=== PATIENT | female | born 1975 | race Caucasian/White ===

== ENCOUNTER 2018-08-28 09:54 | Emergency (ER) | payer MEDICAID ==
[~2018-08-28] VITALS: Ht 157.5 cm; Wt 65.9 kg
[2018-08-28] MEDS ORDERED: CLIN300C17 PO (10:29)
[2018-08-28] MEDS ORDERED: HYDR-4353 PO (10:29)
[2018-08-28 10:37] VITALS: BP 139/92
== END 2018-08-28 10:38 | disposition home or self-care (01) ==
LOC: ER 09:55
DX: S02.5XXA Fracture of tooth (traumatic), initial encounter for closed fracture (principal); K02.9 Dental caries, unspecified; G43.909 Migraine, unspecified, not intractable, without status migrainosus; F12.90 Cannabis use, unspecified, uncomplicated; F15.90 Other stimulant use, unspecified, uncomplicated; F17.200 Nicotine dependence, unspecified, uncomplicated; Z88.0 Allergy status to penicillin; Z88.6 Allergy status to analgesic agent; X58.XXXA Exposure to other specified factors, initial encounter; Y93.89 Activity, other specified; Y92.89 Other specified places as the place of occurrence of the external cause; Y99.8 Other external cause status
CPT/HCPCS: 99283

== ENCOUNTER 2018-10-07 23:55 | Emergency (ER) | payer MEDICAID ==
[~2018-10-07] VITALS: Ht 157.5 cm; Wt 60.5 kg
[~2018-10-07 23:55] MED LIST: CLIN300C17 PO
[2018-10-08 02:58] LABS: BASOPHILS # (AUTO) 0.1 X10'3 (0-0.2); BASOPHILS % (AUTO) 0.6 % (0-1); EOSINOPHILS # (AUTO) 0.2 X10'3 (0-0.9); EOSINOPHILS % (AUTO) 1.7 % (0-6); HEMATOCRIT 37.7 % (35.0-45.0); HEMOGLOBIN 12.5 g/dl (12.0-16.0); LYMPHOCYTES # (AUTO) 1.9 X10'3 (1.1-4.8); LYMPHOCYTES % (AUTO) 20.8 % (21-51); MEAN CORPUSCULAR HEMOGLOBIN 29.6 PG (27.0-31.0); MEAN CORPUSCULAR HGB CONC 33.1 % (33.0-36.5); MEAN CORPUSCULAR VOLUME 89.3 FL (78-98); MEAN PLATELET VOLUME 9.9 FL (7.4-10.4); MONOCYTES # (AUTO) 0.6 X10'3 (0-0.9); MONOCYTES % (AUTO) 6.6 % (2-12); NEUTROPHILS # (AUTO) 6.1 X10'3 (1.8-7.7); NEUTROPHILS % (AUTO) 70.3 % (42-75); PLATELET COUNT 256 X10'3 (140-440); RED BLOOD COUNT 4.22 X10'6 (4.20-5.60); RED CELL DISTRIBUTION WIDTH 14.4 % (11.5-14.5); WHITE BLOOD COUNT 8.9 X10'3 (4.5-11.0)
[2018-10-08 03:02] LABS: ALANINE AMINOTRANSFERASE 22 U/L (12-78); ALBUMIN 3.8 G/DL (3.4-5.0); ALBUMIN/GLOBULIN RATIO 1.1 (1.1-1.5); ALKALINE PHOSPHATASE 80 IU/L (46-116); ANION GAP 9 (8-16); ASPARTATE AMINO TRANSFERASE 17 U/L (10-37); BILIRUBIN,TOTAL 0.3 MG/DL (0.1-1.0); BLOOD UREA NITROGEN 9 MG/DL (7-18); BUN/CREATININE RATIO 14.1 (6.6-38.0); CALCIUM 8.5 MG/DL (8.5-10.1); CHLORIDE 103 MMOL/L (99-107); CREATININE 0.64 MG/DL (0.40-0.90); GLUCOSE 98 MG/DL (70-104); POTASSIUM 3.7 MMOL/L (3.5-5.1); SODIUM 139 MMOL/L (135-145); TOTAL CARBON DIOXIDE 26.9 MMOL/L (24-32); TOTAL PROTEIN 7.3 G/DL (6.4-8.2); eGFR > 90 ML/MIN
--- NOTE | 2018-10-08 03:18 | NUR ---
PT WENT TO THE BATHROOM BEFORE BEING PLACED IN ROOM, HCG SERUM ORDERED PER PROTOCOL DUE TO PATIENTS CONDITION AND NEED FOR HCG RESULTS OCTAVIO.
[2018-10-08 03:22] LABS: INR 0.9 INR; PROTHROMBIN TIME 9.5 SECONDS (9.0-12.0)
[2018-10-08] MEDS ORDERED: morphine 4 MG/ML inj SYRINge IV ONE (04:15)
[2018-10-08] MEDS ORDERED: ondansetron/PF 4mg/2ml inj IV ONE (04:15)
[2018-10-08] MEDS ORDERED: normal saline 1000ML IV soln IVB ONE (04:15)
[2018-10-08 04:22] LABS: CLARITY,URINE CLEAR (Clear); COLOR,URINE YELLOW (Yellow); GLUCOSE, URINE NEGATIVE (Neg); KETONES,URINE NEGATIVE (Neg); LEUKOCYTE ESTERASE ,URINE NEGATIVE (Neg); NITRITES, URINE NEGATIVE (Neg); OCCULT BLOOD,URINE NEGATIVE (Neg); PROTEIN,URINE NEGATIVE (Neg); UROBILINOGEN,URINE 0.2 E.U/dL (0.2-1.0)
[2018-10-08 04:30] LABS: URINE HCG NEGATIVE (NEG)
[2018-10-08 04:57] LABS: UA COLLECTION TYPE VOIDED
[2018-10-08] MEDS ORDERED: morphine 4 MG/ML inj SYRINge IV PRN (05:20)
[2018-10-08] MEDS ORDERED: HYDR-3965 PO (06:31)
[2018-10-08] MEDS ORDERED: DOXY100C43 PO (06:31)
[2018-10-08] MEDS ORDERED: CefTRIAXone 250MG inj IM ONE (06:35)
[2018-10-08] MEDS ORDERED: CefTRIAXone 250MG IM Kit w/LIDOcaine IM ONE (06:40)
[2018-10-08 08:38] VITALS: BP 119/71
== END 2018-10-08 09:06 | disposition home or self-care (01) ==
LOC: ER 23:55
DX: N73.0 Acute parametritis and pelvic cellulitis (principal); D25.9 Leiomyoma of uterus, unspecified; G43.909 Migraine, unspecified, not intractable, without status migrainosus; F17.200 Nicotine dependence, unspecified, uncomplicated; F12.90 Cannabis use, unspecified, uncomplicated; F15.90 Other stimulant use, unspecified, uncomplicated; Z88.0 Allergy status to penicillin; Z88.6 Allergy status to analgesic agent; Z88.5 Allergy status to narcotic agent
CPT/HCPCS: 36415; 76830; 76856; 80053; 81003; 81025; 85025; 85610; 87210; 87491; 87591; 93005; 96361; 96372; 96374; 96375; 96376; 99284; J0696; J2270; J2405; J7030

== ENCOUNTER 2018-10-21 14:55 | Emergency (ER) | payer MEDICAID ==
[~2018-10-21] VITALS: Ht 157.5 cm; Wt 58.8 kg
[~2018-10-21 14:55] MED LIST changes: +DOXY100C43 PO; +HYDR-3965 PO
[2018-10-21 15:30] VITALS: BP 143/89
[2018-10-21] MEDS ORDERED: HYDROcodone/acetaminophen 10/325mg tab PO ONE (16:15)
[2018-10-21] MEDS ORDERED: HYDR-4353 PO (16:32)
== END 2018-10-21 17:01 | disposition home or self-care (01) ==
LOC: ER 14:56
DX: D25.9 Leiomyoma of uterus, unspecified (principal); N93.9 Abnormal uterine and vaginal bleeding, unspecified; G43.909 Migraine, unspecified, not intractable, without status migrainosus; F12.90 Cannabis use, unspecified, uncomplicated; F15.90 Other stimulant use, unspecified, uncomplicated; Z88.0 Allergy status to penicillin; Z88.6 Allergy status to analgesic agent; Z88.5 Allergy status to narcotic agent; Z79.899 Other long term (current) drug therapy
CPT/HCPCS: 99283

== ENCOUNTER 2018-12-27 13:56 | Emergency (ER) | payer MEDICAID ==
[~2018-12-27] VITALS: Ht 157.5 cm; Wt 65.9 kg
[~2018-12-27 13:56] MED LIST changes: +CLIN-96 PO; -DOXY100C43 PO
[2018-12-27 14:12] VITALS: BP 135/88
[2018-12-27] MEDS ORDERED: TRAM50TA2 PO (14:17)
[2018-12-27] MEDS ORDERED: traMADol 50MG tablet PO ONE (14:20)
== END 2018-12-27 14:28 | disposition home or self-care (01) ==
LOC: ER 13:56
DX: M26.622 Arthralgia of left temporomandibular joint (principal); G43.909 Migraine, unspecified, not intractable, without status migrainosus; F17.200 Nicotine dependence, unspecified, uncomplicated; F12.90 Cannabis use, unspecified, uncomplicated; F15.90 Other stimulant use, unspecified, uncomplicated; Z88.0 Allergy status to penicillin; Z88.6 Allergy status to analgesic agent; Z88.5 Allergy status to narcotic agent; Z79.899 Other long term (current) drug therapy
CPT/HCPCS: 99283

== ENCOUNTER 2019-03-06 12:15 | Emergency (ER) | payer MEDICAID ==
[~2019-03-06] VITALS: Ht 157.5 cm; Wt 61.4 kg
[~2019-03-06 12:15] MED LIST changes: -HYDR-3965 PO
[2019-03-06 12:17] VITALS: BP 119/89
[2019-03-06] MEDS ORDERED: proCHLORperazine 10 MG/2 ml inj IM ONE (13:20)
[2019-03-06] MEDS ORDERED: ketorolac tromethamine 15mg/ml inj. IM ONE (13:20)
[2019-03-06] MEDS ORDERED: diphenhydrAMINE 50 mg/ml inj IM ONE (13:20)
[2019-03-06] MEDS ORDERED: RIZA10TA27 PO (14:48)
[2019-03-06] MEDS ORDERED: ONDA8TAB6 PO (14:48)
== END 2019-03-06 14:57 | disposition home or self-care (01) ==
LOC: ER 12:16
DX: G43.909 Migraine, unspecified, not intractable, without status migrainosus (principal); M54.81 Occipital neuralgia; F12.90 Cannabis use, unspecified, uncomplicated; F15.90 Other stimulant use, unspecified, uncomplicated; Z88.0 Allergy status to penicillin; Z88.5 Allergy status to narcotic agent; Z88.6 Allergy status to analgesic agent; Z79.2 Long term (current) use of antibiotics; Z79.899 Other long term (current) drug therapy
CPT/HCPCS: 70450; 96372; 99284; J0780; J1200; J1885

== ENCOUNTER 2021-07-06 09:40 | Inpatient (IN) | payer MEDICAID ==
[~2021-07-06] VITALS: Ht 167.6 cm; Wt 81.8 kg
[~2021-07-06 09:40] MED LIST changes: -CLIN-96 PO; +CLIN-97 PO; +ONDA8TAB6 PO; +RIZA10TA27 PO
[2021-07-06] MEDS ORDERED: MIDAZolam 1 MG/ML 5ML VIAL IV ONE (09:45)
[2021-07-06] MEDS ORDERED: midazolam 1 mg/ML 2ml injection ONE (09:45)
[2021-07-06] MEDS ORDERED: normal saline 1000ml 1,000 ML IV ONE ×3 (10:10→12:00)
[2021-07-06 10:29] LABS: BASOPHILS # (AUTO) 0.1 X10'3 (0-0.2); BASOPHILS % (AUTO) 0.5 % (0-1); EOSINOPHILS % (AUTO) 0.1 % (0-6); HEMATOCRIT 44.1 % (35.0-45.0); HEMOGLOBIN 14.3 g/dl (12.0-16.0); MEAN CORPUSCULAR HEMOGLOBIN 30.8 PG (27.0-31.0); MEAN CORPUSCULAR HGB CONC 32.5 g/dL (33.0-36.5); MEAN CORPUSCULAR VOLUME 94.6 FL (78-98); MEAN PLATELET VOLUME 9.2 FL (7.4-10.4); NEUTROPHILS # (AUTO) 21.8 X10'3 (1.8-7.7); NEUTROPHILS % (AUTO) 87.4 % (42-75); PLATELET COUNT 289 X10'3 (140-440); RED BLOOD COUNT 4.66 X10'6 (4.20-5.60); RED CELL DISTRIBUTION WIDTH 13.5 % (11.5-14.5); WHITE BLOOD COUNT 24.9 X10'3 (4.5-11.0)
[2021-07-06 11:08] LABS: ALANINE AMINOTRANSFERASE 28 U/L (12-78); ALBUMIN 3.1 G/DL (3.4-5.0); ALBUMIN/GLOBULIN RATIO 0.8 (1.1-1.5); ALKALINE PHOSPHATASE 113 IU/L (46-116); ANION GAP 9 (8-16); ASPARTATE AMINO TRANSFERASE 25 U/L (10-37); BILIRUBIN,TOTAL 0.2 MG/DL (0.1-1.0); BLOOD UREA NITROGEN 16 MG/DL (7-18); BUN/CREATININE RATIO 15.7 (6.6-38.0); CALCIUM 8.2 MG/DL (8.5-10.1); CHLORIDE 107 MMOL/L (99-107); CREATININE 1.02 MG/DL (0.40-0.90); GLUCOSE 112 MG/DL (70-104); POTASSIUM 3.5 MMOL/L (3.5-5.1); SODIUM 142 MMOL/L (135-145); TOTAL CARBON DIOXIDE 25.9 MMOL/L (24-32); TOTAL PROTEIN 6.8 G/DL (6.4-8.2); eGFR 59 ML/MIN
[2021-07-06 11:22] LABS: CLARITY,URINE SLIGHTLY CLOUDY (Clear); COLOR,URINE YELLOW (Yellow); GLUCOSE, URINE 500 mg/dl (Neg); KETONES,URINE NEGATIVE (Neg); OCCULT BLOOD,URINE MODERATE (Neg); PROTEIN,URINE NEGATIVE (Neg); UA COLLECTION TYPE STRAIGHT CATH
[2021-07-06 11:23] LABS: LEUKOCYTE ESTERASE ,URINE NEGATIVE (Neg); NITRITES, URINE NEGATIVE (Neg); UROBILINOGEN,URINE 0.2 E.U/dL (0.2-1.0)
[2021-07-06 11:25] LABS: ACETAMINOPHEN < 2.0 UG/ML (10-30); ETHANOL < 0.010 GM/DL (0.0-0.010)
[2021-07-06 11:25] LABS: URINE AMPHETAMINE SCREEN POSITIVE (Neg); URINE BARBITUATE SCREEN NEGATIVE (Neg); URINE BENZODIAZEPINES SCREEN POSITIVE (Neg); URINE CANNABINOID SCREEN POSITIVE (Neg); URINE COCAINE SCREEN NEGATIVE (Neg); URINE METHADONE SCREEN NEGATIVE (Neg); URINE OPIATE SCREEN NEGATIVE (Neg); URINE PHENCYCLIDINE SCREEN NEGATIVE (Neg)
[2021-07-06] MEDS ORDERED: CefTRIAXone/D5W-Rocephin 1gm 50 ML IV ONE (11:40)
[2021-07-06] MEDS ORDERED: metroNIDAZOLE-Flagyl 500mg/NS 100 ML IV STA (11:40)
[2021-07-06 11:49] LABS: HYALINE CASTS >30 /LPF (NEGATIVE); MUCUS STRANDS MANY /LPF (Neg); SQUAMOUS EPITHELIAL CELL,UR MODERATE /LPF (FEW)
[2021-07-06 11:51] LABS: BACTERIA,URINE FEW /HPF (Neg); RBC,URINE 0-2 /HPF (0-2); WBC,URINE 0-4 /HPF (0-4)
--- NOTE | 2021-07-06 12:37 | NUR ---
PT STATES SHE DOES NOT WANT MOTHER ADY TO KNOW INFORMATION ABOUT PT.
[2021-07-06] MEDS ORDERED: NO HOME MEDS PO (12:55)
[2021-07-06] MEDS ORDERED: mag hydrox/Alum hydrox/simeth 30ml oral suspension PO PRN (15:05)
[2021-07-06] MEDS ORDERED: acetaminophen 325mg tablet PO PRN (15:05)
[2021-07-06] MEDS ORDERED: ondansetron/PF 4mg/2ml inj IV PRN (15:05)
[2021-07-06] MEDS ORDERED: magnesium hydroxide 30ml (MOM) UD suspension PO PRN (15:05)
[2021-07-06] MEDS: clindamycin 600mg/D5W 50ml 50 ML IV SCH ×2 (16:00→22:56)
[2021-07-06] MEDS: normal saline 1000ml 1,000 ML IV SCH (16:00)
--- NOTE | 2021-07-06 16:06 | NUR ---
PT FOUND WITH O2 OFF SPO2 80%. PT DEMANDS WATER. STATES SHES SUPER DRY. EDUCATED ABOUT NPO ORDER. PLACED ON 6l N/C AND SPO2 TO 92%
--- NOTE | 2021-07-06 18:52 | NUR ---
Pt. wants information shared with her daughter Esther
[2021-07-06] MEDS: docusate sod 100mg capsule PO SCH (20:00)
--- NOTE | 2021-07-06 22:07 | NUR ---
Patient in ED. I have received report from RUSSELL Riojas and had the opportunity to ask questions.
[2021-07-06 22:35] VITALS: BP 137/86
--- NOTE | 2021-07-06 22:35 | NUR ---
Pt arrived in the unit; sitter @ bedside; confused, but in no acute distress; sleeps off and on; c/o dry mouth - oral care provided; aspiration precaution in placed; placed on tele monitor.
[2021-07-07] VITALS (7 sets, daily range): BP systolic 134–168; BP diastolic 80–99
[2021-07-07] MEDS: normal saline 1000ml 1,000 ML IV SCH ×3 (02:08→20:14)
[2021-07-07] MEDS: clindamycin 600mg/D5W 50ml 50 ML IV SCH ×4 (02:09→20:14)
[2021-07-07] MEDS: albuterol 2.5 MG/3 ML nebule NEB SCH ×6 (04:00→23:27)
[2021-07-07 06:24] LABS: ALBUMIN 2.4 G/DL (3.4-5.0); ANION GAP 11 (8-16); BASOPHILS % (AUTO) 0.2 % (0-1); BLOOD UREA NITROGEN 12 MG/DL (7-18); BUN/CREATININE RATIO 17.9 (6.6-38.0); CALCIUM 7.7 MG/DL (8.5-10.1); CHLORIDE 106 MMOL/L (99-107); CREATININE 0.67 MG/DL (0.40-0.90); EOSINOPHILS % (AUTO) 0.1 % (0-6); GLUCOSE 91 MG/DL (70-104); HEMATOCRIT 38.1 % (35.0-45.0); HEMOGLOBIN 12.9 g/dl (12.0-16.0); LYMPHOCYTES # (AUTO) 0.9 X10'3 (1.1-4.8); LYMPHOCYTES % (AUTO) 4.9 % (21-51); MEAN CORPUSCULAR HGB CONC 33.9 g/dL (33.0-36.5); MEAN CORPUSCULAR VOLUME 91.5 FL (78-98); MEAN PLATELET VOLUME 9.7 FL (7.4-10.4); MONOCYTES # (AUTO) 1.1 X10'3 (0-0.9); MONOCYTES % (AUTO) 5.4 % (2-12); NEUTROPHILS # (AUTO) 17.4 X10'3 (1.8-7.7); NEUTROPHILS % (AUTO) 89.4 % (42-75); PLATELET COUNT 212 X10'3 (140-440); POTASSIUM 3.7 MMOL/L (3.5-5.1); RED BLOOD COUNT 4.17 X10'6 (4.20-5.60); RED CELL DISTRIBUTION WIDTH 13.2 % (11.5-14.5); SODIUM 142 MMOL/L (135-145); TOTAL CARBON DIOXIDE 25.4 MMOL/L (24-32); WHITE BLOOD COUNT 19.5 X10'3 (4.5-11.0); eGFR > 90 ML/MIN
--- NOTE | 2021-07-07 06:31 | NUR ---
Problems reprioritized. Patient report given, questions answered & plan of care reviewed with RUSSELL Tello.
[2021-07-07] MEDS: docusate sod 100mg capsule PO SCH ×2 (08:46→20:14)
[2021-07-07] MEDS: enoxaparin 40mg/0.4ml syringe SUBCUT SCH (08:47)
--- NOTE | 2021-07-07 09:34 | NUR ---
Orders for Bedside swallow study put in per Dr. Solis.
[2021-07-08] MEDS: normal saline 1000ml 1,000 ML IV SCH ×3 (01:00→12:27)
[2021-07-08] MEDS: clindamycin 600mg/D5W 50ml 50 ML IV SCH ×4 (01:48→20:18)
[2021-07-08 02:00] VITALS: BP 151/95
[2021-07-08] MEDS: albuterol 2.5 MG/3 ML nebule NEB SCH ×6 (03:30→23:32)
[2021-07-08 06:00] VITALS: BP 168/95
[2021-07-08 06:22] LABS: BASOPHILS % (AUTO) 0.3 % (0-1); EOSINOPHILS % (AUTO) 0.3 % (0-6); HEMATOCRIT 34.9 % (35.0-45.0); HEMOGLOBIN 12.2 g/dl (12.0-16.0); LYMPHOCYTES # (AUTO) 0.7 X10'3 (1.1-4.8); LYMPHOCYTES % (AUTO) 5.6 % (21-51); MEAN CORPUSCULAR HGB CONC 34.8 g/dL (33.0-36.5); MEAN CORPUSCULAR VOLUME 89.2 FL (78-98); MEAN PLATELET VOLUME 9.4 FL (7.4-10.4); MONOCYTES # (AUTO) 0.9 X10'3 (0-0.9); MONOCYTES % (AUTO) 7.3 % (2-12); NEUTROPHILS # (AUTO) 10.6 X10'3 (1.8-7.7); NEUTROPHILS % (AUTO) 86.5 % (42-75); PLATELET COUNT 176 X10'3 (140-440); RED BLOOD COUNT 3.91 X10'6 (4.20-5.60); RED CELL DISTRIBUTION WIDTH 13.1 % (11.5-14.5); WHITE BLOOD COUNT 12.3 X10'3 (4.5-11.0)
[2021-07-08 06:25] LABS: ALBUMIN 2.2 G/DL (3.4-5.0); ANION GAP 9 (8-16); BLOOD UREA NITROGEN 6 MG/DL (7-18); BUN/CREATININE RATIO 10.2 (6.6-38.0); CALCIUM 7.8 MG/DL (8.5-10.1); CHLORIDE 101 MMOL/L (99-107); CREATININE 0.59 MG/DL (0.40-0.90); GLUCOSE 102 MG/DL (70-104); POTASSIUM 3.1 MMOL/L (3.5-5.1); SODIUM 138 MMOL/L (135-145); TOTAL CARBON DIOXIDE 28.5 MMOL/L (24-32); eGFR > 90 ML/MIN
--- NOTE | 2021-07-08 06:41 | NUR ---
Problems reprioritized. Patient report given, questions answered & plan of care reviewed with RUSSELL Iyer.
[2021-07-08] MEDS: docusate sod 100mg capsule PO SCH ×2 (07:38→20:18)
[2021-07-08] MEDS: enoxaparin 40mg/0.4ml syringe SUBCUT SCH (07:39)
--- NOTE | 2021-07-08 10:57 | NUR ---
PAGER ID: [phone] MESSAGE: [id number] Messi Del Toro- Potassium 3.1. Want potassium protocol? Shireen [phone]
[2021-07-08 11:00] VITALS: BP 144/100
[2021-07-08] MEDS ORDERED: potassium Cl 40MEQ/1/2NS 520ml 520 ML IV PRN (12:15)
[2021-07-08] MEDS ORDERED: magnesium Cl slow-release 64mg tablet PO PRN (12:15)
[2021-07-08] MEDS ORDERED: magnesium 4gm in 100ml NS 100 ML IV PRN (12:15)
[2021-07-08] MEDS ORDERED: potassium Cl 20 mEq SR tablet PO PRN (12:15)
[2021-07-08] MEDS: potassium Cl 20 mEq SR tablet PO PRN ×3 (12:28→20:18)
[2021-07-08 12:44] LABS: MAGNESIUM 1.9 MG/DL (1.5-2.4)
[2021-07-08] MEDS: metoprolol succinate 25mg (24-HOUR) SR. Tablet PO SCH (13:28)
[2021-07-08 15:00] VITALS: BP 151/88
[2021-07-08 18:00] VITALS: BP 162/99
--- NOTE | 2021-07-08 18:42 | NUR ---
Problems reprioritized. Patient report given, questions answered & plan of care reviewed with Ada WELLS.
[2021-07-08] MEDS: K and/or MAG REPLACEMENT MC SCH (20:00)
[2021-07-08] MEDS: lactobacillus rhamnosus 10,000 MMU CELLS/CAPSULE PO SCH (20:18)
[2021-07-08 22:00] VITALS: BP 140/86
[2021-07-09 02:00] VITALS: BP 165/100
[2021-07-09] MEDS: clindamycin 600mg/D5W 50ml 50 ML IV SCH ×2 (02:15→07:26)
[2021-07-09] MEDS: albuterol 2.5 MG/3 ML nebule NEB SCH ×2 (03:55→07:00)
[2021-07-09 06:00] VITALS: BP 169/108
[2021-07-09 07:24] VITALS: BP 153/90
[2021-07-09 07:25] LABS: BASOPHILS % (AUTO) 0.4 % (0-1); EOSINOPHILS # (AUTO) 0.1 X10'3 (0-0.9); EOSINOPHILS % (AUTO) 0.7 % (0-6); HEMATOCRIT 35.8 % (35.0-45.0); HEMOGLOBIN 12.3 g/dl (12.0-16.0); LYMPHOCYTES # (AUTO) 0.9 X10'3 (1.1-4.8); LYMPHOCYTES % (AUTO) 7.7 % (21-51); MEAN CORPUSCULAR HEMOGLOBIN 31.3 PG (27.0-31.0); MEAN CORPUSCULAR HGB CONC 34.4 g/dL (33.0-36.5); MEAN PLATELET VOLUME 9.4 FL (7.4-10.4); MONOCYTES % (AUTO) 9.1 % (2-12); NEUTROPHILS # (AUTO) 9.2 X10'3 (1.8-7.7); NEUTROPHILS % (AUTO) 82.1 % (42-75); PLATELET COUNT 193 X10'3 (140-440); RED BLOOD COUNT 3.93 X10'6 (4.20-5.60); WHITE BLOOD COUNT 11.2 X10'3 (4.5-11.0)
[2021-07-09] MEDS: lactobacillus rhamnosus 10,000 MMU CELLS/CAPSULE PO SCH (07:25)
[2021-07-09] MEDS: enoxaparin 40mg/0.4ml syringe SUBCUT SCH (07:26)
[2021-07-09] MEDS: docusate sod 100mg capsule PO SCH (07:26)
[2021-07-09] MEDS: metoprolol succinate 25mg (24-HOUR) SR. Tablet PO SCH (07:26)
[2021-07-09 07:40] LABS: ALBUMIN 2.2 G/DL (3.4-5.0); ANION GAP 12 (8-16); BLOOD UREA NITROGEN 6 MG/DL (7-18); BUN/CREATININE RATIO 12.8 (6.6-38.0); CHLORIDE 103 MMOL/L (99-107); CREATININE 0.47 MG/DL (0.40-0.90); GLUCOSE 98 MG/DL (70-104); POTASSIUM 3.7 MMOL/L (3.5-5.1); SODIUM 139 MMOL/L (135-145); TOTAL CARBON DIOXIDE 24.1 MMOL/L (24-32); eGFR > 90 ML/MIN
[2021-07-09] MEDS: K and/or MAG REPLACEMENT MC SCH (08:00)
[2021-07-09] MEDS ORDERED: CLIN-91 PO (10:14)
[2021-07-09] MEDS ORDERED: NICO-687 TOP (10:14)
[2021-07-09] MEDS ORDERED: METO-395 PO (10:14)
--- NOTE | 2021-07-09 10:45 | NUR ---
Patient stable for discharge. PIV removed with catheter intact. Tele removed. Discharge instructions given and patient verbalized understanding. Patient transferred off unit to family friend's vehicle via wheelchair.
== END 2021-07-09 11:14 | disposition home or self-care (01) | DRG 817 ==
LOC: ER 09:40 → ED HOLD 15:05 → PCU 3S 22:35
PROVIDERS: ADMIT Family Medicine; ATTEND Family Medicine
DX: T40.2X2A Poisoning by other opioids, intentional self-harm, initial encounter (principal); J96.01 Acute respiratory failure with hypoxia; J69.0 Pneumonitis due to inhalation of food and vomit; E87.2 Acidosis; F12.90 Cannabis use, unspecified, uncomplicated; F17.210 Nicotine dependence, cigarettes, uncomplicated; Z20.822 Contact with and (suspected) exposure to COVID-19; F15.10 Other stimulant abuse, uncomplicated; E87.6 Hypokalemia; F41.9 Anxiety disorder, unspecified; G43.909 Migraine, unspecified, not intractable, without status migrainosus; G89.29 Other chronic pain; R00.0 Tachycardia, unspecified; R03.0 Elevated blood-pressure reading, without diagnosis of hypertension; Z88.0 Allergy status to penicillin; Z88.5 Allergy status to narcotic agent; Y92.89 Other specified places as the place of occurrence of the external cause; Z71.51 Drug abuse counseling and surveillance of drug abuser; Z71.6 Tobacco abuse counseling
CPT/HCPCS: 36415; 71045; 80048; 80053; 80305; 80320; 80329; 81001; 83605; 83735; 84145; 84443; 85025; 85610; 87040; 87081; 87635; 92508; 92616; 93005; 94640; 94760; 96361; 96365; 96366; 96368; 99285; C9803; G0378; J0696; J1650; J2250; J3490; J7030

== ENCOUNTER 2021-07-25 17:53 | Emergency (ER) | payer MEDICAID ==
[~2021-07-25] VITALS: Ht 162.6 cm; Wt 63.6 kg
[~2021-07-25 17:53] MED LIST changes: +CLIN-91 PO; -CLIN-97 PO; -CLIN300C17 PO; +METO-395 PO; +NICO-687 TOP; -ONDA8TAB6 PO; -RIZA10TA27 PO
[2021-07-25 18:05] VITALS: BP 143/94
[2021-07-25 18:58] LABS: BASOPHILS # (AUTO) 0.1 X10'3 (0-0.2); BASOPHILS % (AUTO) 1.2 % (0-1); EOSINOPHILS % (AUTO) 0.5 % (0-6); HEMATOCRIT 37.5 % (35.0-45.0); HEMOGLOBIN 12.9 g/dl (12.0-16.0); LYMPHOCYTES # (AUTO) 0.9 X10'3 (1.1-4.8); LYMPHOCYTES % (AUTO) 15.4 % (21-51); MEAN CORPUSCULAR HEMOGLOBIN 30.8 PG (27.0-31.0); MEAN CORPUSCULAR HGB CONC 34.5 g/dL (33.0-36.5); MEAN CORPUSCULAR VOLUME 89.2 FL (78-98); MEAN PLATELET VOLUME 8.6 FL (7.4-10.4); MONOCYTES # (AUTO) 0.9 X10'3 (0-0.9); MONOCYTES % (AUTO) 15.2 % (2-12); NEUTROPHILS # (AUTO) 3.8 X10'3 (1.8-7.7); NEUTROPHILS % (AUTO) 67.7 % (42-75); PLATELET COUNT 309 X10'3 (140-440); RED BLOOD COUNT 4.21 X10'6 (4.20-5.60); WHITE BLOOD COUNT 5.6 X10'3 (4.5-11.0)
[2021-07-25 19:12] LABS: ALANINE AMINOTRANSFERASE 30 U/L (12-78); ALBUMIN 2.8 G/DL (3.4-5.0); ALBUMIN/GLOBULIN RATIO 0.7 (1.1-1.5); ALKALINE PHOSPHATASE 137 IU/L (46-116); ANION GAP 13 (8-16); ASPARTATE AMINO TRANSFERASE 30 U/L (10-37); BILIRUBIN,TOTAL 0.1 MG/DL (0.1-1.0); BLOOD UREA NITROGEN 10 MG/DL (7-18); BUN/CREATININE RATIO 13.2 (6.6-38.0); CALCIUM 7.4 MG/DL (8.5-10.1); CHLORIDE 101 MMOL/L (99-107); CREATININE 0.76 MG/DL (0.40-0.90); GLUCOSE 139 MG/DL (70-104); POTASSIUM 4.1 MMOL/L (3.5-5.1); SODIUM 134 MMOL/L (135-145); TOTAL CARBON DIOXIDE 20.4 MMOL/L (24-32); eGFR 83 ML/MIN
--- NOTE | 2021-07-25 20:30 | NUR ---
Discharged by provider.
== END 2021-07-25 20:32 | disposition home or self-care (01) ==
LOC: ER 17:55
DX: R05.9 Cough, unspecified (principal); Z20.822 Contact with and (suspected) exposure to COVID-19; G43.909 Migraine, unspecified, not intractable, without status migrainosus; F12.90 Cannabis use, unspecified, uncomplicated; F15.90 Other stimulant use, unspecified, uncomplicated; Z72.89 Other problems related to lifestyle; Z88.0 Allergy status to penicillin; Z88.8 Allergy status to other drugs, medicaments and biological substances; Z79.2 Long term (current) use of antibiotics; Z79.899 Other long term (current) drug therapy
CPT/HCPCS: 71045; 80053; 85025; 99284

== ENCOUNTER 2021-08-28 13:27 | Emergency (ER) | payer MEDICAID ==
[~2021-08-28] VITALS: Ht 160 cm; Wt 70.0 kg
[2021-08-28 13:32] VITALS: BP 163/103
[2021-08-28] MEDS ORDERED: CLIN150C8 PO (14:45)
== END 2021-08-30 10:35 | disposition home or self-care (01) ==
LOC: ER 13:27
DX: K08.89 Other specified disorders of teeth and supporting structures (principal); F41.9 Anxiety disorder, unspecified; G43.909 Migraine, unspecified, not intractable, without status migrainosus; F12.10 Cannabis abuse, uncomplicated; F15.10 Other stimulant abuse, uncomplicated; Z88.0 Allergy status to penicillin; Z79.899 Other long term (current) drug therapy; Z88.6 Allergy status to analgesic agent; Z88.5 Allergy status to narcotic agent
CPT/HCPCS: 99283

== ENCOUNTER 2024-07-04 10:49 | Outpatient (CLI) | payer MEDICAID ==
[~2024-07-04 10:49] MED LIST changes: +CLIN-214 PO; +CLIN-232 PO; -CLIN-91 PO
== END 2024-07-04 23:59 | disposition home or self-care (01) ==
LOC: MRI02 10:49
PROVIDERS: ATTEND Orthopaedic Surgery
DX: M77.11 Lateral epicondylitis, right elbow (principal); M25.521 Pain in right elbow; G56.21 Lesion of ulnar nerve, right upper limb; G56.01 Carpal tunnel syndrome, right upper limb
CPT/HCPCS: 73221